=== PATIENT | male | born 1995 | race Caucasian/White ===

== ENCOUNTER 2024-01-12 20:13 | Inpatient (IN) ==
[2024-01-12] MEDS: SODIUM CHLORIDE 0.9% 1,000 ML IV SCH (20:37)
[2024-01-12 20:58] LABS: Appearance Urine Cloudy (Clear); Bacteria Urine Automated None Seen (None Seen); Bilirubin Urine Negative (Negative); Blood Urine Negative (Negative); Cast Urine Automated 0-2 /lpf (0-2); Color Urine Yellow; Epithelial Cell Urine Auto 0-2 /hpf (0-2); Glucose Urine UA Negative (Negative); Ketones Urine Negative (Negative); Leukocyte Esterase Urine Negative (Negative); Nitrite Urine Negative (Negative); Protein Urine Negative (Negative); RBC Urine Automated 0-2 /hpf (0-2); Specific Gravity Urine 1.014 (1.000-1.030); Urobilinogen Urine Negative (Negative); WBC Urine Automated 0-5 /hpf (0-5); pH Urine 7.5 (4.5-7.5)
[2024-01-12 20:59] LABS: Basophils # (auto) 0.05 K/uL (0.00-0.20); Basophils % (auto) 0.7 %; Eosinophils # (auto) 0.17 K/uL (0.00-0.50); Eosinophils % (auto) 2.4 %; Hematocrit (blood only) 37.4 % (42.0-52.0); Hemoglobin 12.5 g/dl (14.0-18.0); Immature Granulocytes # (auto) 0.04 K/uL (0.01-0.20); Immature Granulocytes % (auto) 0.6 %; Lymphocytes # (auto) 1.52 K/uL (1.20-3.40); Lymphocytes % (auto) 21.1 %; Mean Corpuscular Hemoglobin 31.7 pg (25.0-34.0); Mean Corpuscular Hgb Conc 33.4 g/dL (32.0-36.0); Mean Corpuscular Volume 94.9 fL (80.0-100.0); Mean Platelet Volume 10.8 fL (9.4-12.4); Monocytes # (auto) 0.67 K/uL (0.11-0.59); Monocytes % (auto) 9.3 %; Neutrophils # (auto) 4.74 K/uL (1.40-6.50); Neutrophils % (auto) 65.9 %; Platelet Count 147 K/uL (130-400); RDW Coefficient of Variation 13.3 % (11.5-14.5); RDW Standard Deviation 46.6 fL (36.4-46.3); Red Blood Count 3.94 M/uL (4.70-6.10); White Blood Count 7.19 K/ul (4.8-10.8)
--- NOTE | 2024-01-12 21:01 | Emergency Department Note ---
Impression & Plan TCA (tricyclic antidepressant) overdose of undetermined intent, Acute drug overdose ED Provider Note NAME: MITZY HARDY AGE: 28 SEX: M : 1995 ARRIVES VIA: Ambulance INFORMANT: Patient, ED PROVIDER(S): Kati Benitez MD CHIEF COMPLAINT: Concern for overdose HPI: This is a 28-year-old male presenting for overdose. Patient states he took gabapentin and possibly doxepin. He presented here after being found asleep on campus. He had a handful of pills in his backpack and bystanders called EMS. Patient received total of 2 of Narcan by EMS without improvement in symptoms. Upon arrival here he does mention that he took pills as well as marijuana. He is slurring his speech, falling asleep while talking to me. Maintaining his airway appropriately. ROS: See above HPI for pertinent positives & negatives. A total of 10 systems reviewed and were otherwise negative. PAST MEDICAL HISTORY: See Below PAST SURGICAL HISTORY: See Below FAMILY HISTORY: See Below SOCIAL HISTORY: See Below HOME MEDICATIONS: See Below ALLERGIES: See Below VITALS: See Below PHYSICAL EXAMINATION: General: Intermittently somnolent but arousable, disheveled appearing Head: Normocephalic and atraumatic Eyes: Normal inspection, extraocular muscles intact Ear, nose, throat: Normal external exam Neck: Normal range of motion Respiratory: lungs clear to auscultation bilaterally Cardiovascular: Regular rate/rhythm, no murmur GI: soft, nontender, no guarding or rebound Extremities: nontender, moves all extremities Neuro: Follows commands, moves all extremities, arousable to painful stimuli and voice Skin: Warm, dry, and intact MEDICAL DECISION MAKING: This 28-year-old male presenting for polysubstance overdose. Patient fairly admits to gabapentin and marijuana use today. He has numerous pills in his backpack. He is present on the pharmacy was able to identify trazodone 100 mg, gabapentin 300 mg, gabapentin 600 mg as well as doxepin 100 mg. -At this time patient is somnolent but arousable to voice and follows commands -He is not hypoxic, only mildly tachycardic to 110 -Eyes are pinpoint -CT of the head reveals no acute again process -ECG independently interpreted by me with sinus tachycardia, rate of 112, normal axis, normal OR, normal QRS, normal QTc, no ST segment elevations consistent with STEMI criteria -With a handful of pills that patient has, most concerned about possible TCA overdose due to the doxepin. Will monitor closely with EKG. Otherwise patient is resting here, easily arousable to voice, painful stimuli and follows my commands. If worsening, will escalate care including intubation if necessary. -Discussed care with [facility]. Advised his medical history, current suspected ingestion and labs/EKG -They will call us back later and is concerned about patient transaminitis, recommends NAC protocol for Tylenol despite this being negative and reports a precaution -Blood work overall reviewed showing no leukocytosis, anemia 12.5 otherwise no significant electrolyte disturbances. Transaminitis with AST greater than ALT. No bilirubin elevation. UDS only shows marijuana. VBG is not showing any acidosis. -Patient reevaluated multiple times, maintaining airway, never hypoxic. -Patient admitted to hospital service for NAC protocol as well as multidrug ingestion at this time Differential diagnosis: TCA overdose, polypharmacy, ER treatment provided: See below Diagnostics interpreted by me: ECG: See above Cardiac Monitoring: An order was placed for continuous cardiac monitoring. The monitor shows a rate of 09/10/2011 with sinus rhythm. Laboratory studies: As stated above and show below. Imaging studies: See below. Critical Care Note: I have personally spent 45 minutes of critical care time in the direct management of this patient. This includes bedside care, interpretation of diagnostic studies, and testing, discussion with consultants, patient, and family members, and other required patient management activities. This 45 minutes is in excess of all separately billable procedures. Past Med/Surg History Medical History Drug abuse Alcohol abuse Surgical History No pertinent past surgical history Social History Smoking Status: Unknown if ever smoked Preferred Language: Kitt[place] Feels Safe at Home: Yes Allergies Allergies Allergy/AdvReac Type Severity Reaction Status Date / Time No Known Allergies Allergy Unverified 01/01/24 12:27 Home Meds Home Medications Medication Instructions Recorded Confirmed No Known Home Medications 01/01/24 01/12/24 Results & Data (ED) Vital Signs Vital Signs - 24 hr 01/12/24 20:21 01/12/24 20:24 01/12/24 20:30 Pulse Rate 110 H 113 H 115 H Pulse Rate from SpO2 Sensor Respiratory Rate 20 18 Respiratory Effort / Characteristics Non-Labored Spontaneous Respiratory Depth Normal Respiratory Pattern Regular Blood Pressure 128/85 140/83 Blood Pressure Mean 99 102 Blood Pressure Position Sitting Pulse Oximetry 100 99 Oxygen Delivery Method Room Air Room Air Sepsis Recent Fever Within 48 Hours No Sepsis New/Unexplained Change in Mental Status N/A Sepsis Action Taken by Nursing No Action Required 01/12/24 21:00 01/12/24 21:15 01/12/24 21:30 Pulse Rate 115 H 116 H 116 H Pulse Rate from SpO2 Sensor Respiratory Rate 20 20 20 Respiratory Effort / Characteristics Respiratory Depth Respiratory Pattern Blood Pressure 125/96 143/98 H 128/99 Blood Pressure Mean 105 113 108 Blood Pressure Position Pulse Oximetry 100 100 99 Oxygen Delivery Method Room Air Room Air Room Air Sepsis Recent Fever Within 48 Hours Sepsis New/Unexplained Change in Mental Status Sepsis Action Taken by Nursing 01/12/24 21:30 01/12/24 21:45 01/12/24 21:45 Pulse Rate 116 H 111 H 113 H Pulse Rate from SpO2 Sensor 116 H 113 H Respiratory Rate 23 18 19 Respiratory Effort / Characteristics Respiratory Depth Respiratory Pattern Blood Pressure 128/99 149/103 H 149/103 H Blood Pressure Mean 108 118 118 Blood Pressure Position Pulse Oximetry 99 100 100 Oxygen Delivery Method Room Air Room Air Room Air Sepsis Recent Fever Within 48 Hours Sepsis New/Unexplained Change in Mental Status Sepsis Action Taken by Nursing 01/12/24 22:00 01/12/24 22:02 01/12/24 22:15 Pulse Rate 112 H 107 H 112 H Pulse Rate from SpO2 Sensor 107 H Respiratory Rate 18 20 20 Respiratory Effort / Characteristics Respiratory Depth Respiratory Pattern Blood Pressure 121/85 121/85 121/85 Blood Pressure Mean 97 97 97 Blood Pressure Position Pulse Oximetry 100 100 100 Oxygen Delivery Method Room Air Room Air Room Air Sepsis Recent Fever Within 48 Hours Sepsis New/Unexplained Change in Mental Status Sepsis Action Taken by Nursing 01/12/24 22:30 01/12/24 22:30 01/12/24 22:45 Pulse Rate 108 H 108 H 108 H Pulse Rate from SpO2 Sensor 108 H Respiratory Rate 20 21 18 Respiratory Effort / Characteristics Respiratory Depth Respiratory Pattern Blood Pressure 134/104 H 135/104 H 135/104 H Blood Pressure Mean 114 114 114 Blood Pressure Position Pulse Oximetry 97 98 98 Oxygen Delivery Method Room Air Room Air Room Air Sepsis Recent Fever Within 48 Hours Sepsis New/Unexplained Change in Mental Status Sepsis Action Taken by Nursing 01/12/24 23:00 01/12/24 23:00 01/12/24 23:15 Pulse Rate 108 H 108 H 109 H Pulse Rate from SpO2 Sensor 108 H Respiratory Rate 20 22 20 Respiratory Effort / Characteristics Respiratory Depth Respiratory Pattern Blood Pressure 127/98 127/98 121/96 Blood Pressure Mean 107 107 104 Blood Pressure Position Pulse Oximetry 97 100 95 Oxygen Delivery Method Room Air Room Air Room Air Sepsis Recent Fever Within 48 Hours Sepsis New/Unexplained Change in Mental Status Sepsis Action Taken by Nursing 01/12/24 23:30 01/12/24 23:45 01/13/24 00:00 Pulse Rate 112 H 111 H 110 H Pulse Rate from SpO2 Sensor Respiratory Rate 20 20 20 Respiratory Effort / Characteristics Respiratory Depth Respiratory Pattern Blood Pressure 139/115 H 129/95 126/93 Blood Pressure Mean 123 106 104 Blood Pressure Position Pulse Oximetry 94 95 94 Oxygen Delivery Method Room Air Room Air Room Air Sepsis Recent Fever Within 48 Hours Sepsis New/Unexplained Change in Mental Status Sepsis Action Taken by Nursing 01/13/24 00:15 01/13/24 00:15 01/13/24 00:30 Pulse Rate 109 H 108 H 109 H Pulse Rate from SpO2 Sensor 108 H Respiratory Rate 20 22 20 Respiratory Effort / Characteristics Respiratory Depth Respiratory Pattern Blood Pressure 138/102 H 138/102 H 129/90 Blood Pressure Mean 114 114 103 Blood Pressure Position Pulse Oximetry 98 97 96 Oxygen Delivery Method Room Air Room Air Room Air Sepsis Recent Fever Within 48 Hours Sepsis New/Unexplained Change in Mental Status Sepsis Action Taken by Nursing 01/13/24 01:00 01/13/24 01:30 01/13/24 02:00 Pulse Rate 109 H 110 H 113 H Pulse Rate from SpO2 Sensor Respiratory Rate 22 20 20 Respiratory Effort / Characteristics Respiratory Depth Respiratory Pattern Blood Pressure 136/112 H 136/112 H 143/93 H Blood Pressure Mean 120 120 109 Blood Pressure Position Pulse Oximetry 96 96 98 Oxygen Delivery Method Room Air Room Air Room Air Sepsis Recent Fever Within 48 Hours Sepsis New/Unexplained Change in Mental Status Sepsis Action Taken by Nursing Laboratory Data 01/12/24 20:30 01/12/24 20:30 Lab Results 01/12/24 01/12/24 Range/Units 20:30 21:09 WBC 7.19 (4.8-10.8) K/ul RBC 3.94 L (4.70-6.10) M/uL Hgb 12.5 L (14.0-18.0) g/dl Hct 37.4 L (42.0-52.0) % MCV 94.9 (80.0-100.0) fL MCH 31.7 (25.0-34.0) pg MCHC 33.4 (32.0-36.0) g/dL RDW Std Deviation 46.6 H (36.4-46.3) fL RDW Coeff of Willian 13.3 (11.5-14.5) % Plt Count 147 (130-400) K/uL MPV 10.8 (9.4-12.4) fL Immature Gran % (Auto) 0.6 % Neut % (Auto) 65.9 % Lymph % (Auto) 21.1 % [place] % (Auto) 9.3 % Eos % (Auto) 2.4 % Baso % (Auto) 0.7 % Neut # (Auto) 4.74 (1.40-6.50) K/uL Lymph # (Auto) 1.52 (1.20-3.40) K/uL [place] # (Auto) 0.67 H (0.11-0.59) K/uL Eos # (Auto) 0.17 (0.00-0.50) K/uL Baso # (Auto) 0.05 (0.00-0.20) K/uL Immature Gran # (Auto) 0.04 (0.01-0.20) K/uL PT 9.4 (9.0-12.0) Seconds INR 0.9 (0.9-1.1) VBG pH 7.38 (7.36-7.41) VBG pCO2 55 H (38-50) mmHg VBG pO2 37 mmHg VBG HCO3 33 mmol/L VBG O2 Saturation < 60.0 % VBG Base Excess 5.8 mEq/L Sodium 140 (136-145) mmol/L Potassium 4.2 (3.5-5.1) mmol/L Chloride 102 (98-107) mmol/L Carbon Dioxide 32 (21-32) mmol/L Anion Gap 6 (3-11) BUN 23 (6-23) mg/dl Creatinine 0.85 (0.6-1.4) mg/dl Est Cr Clr Drug Dosing 139.0 ml/min Est GFR ( Amer) 138.4 ml/min Est GFR (Non-Af Amer) 119.4 ml/min BUN/Creatinine Ratio 27.1 H (10-20) Glucose 99 (70-99(Fasting)) mg/dl Lactate 1.5 (0.4-2.0) mmol/L Calcium 8.4 L (8.6-10.3) mg/dl Magnesium 2.1 (1.7-2.4) mg/dl Total Bilirubin 0.5 (0.2-1.0) mg/dl AST 455 H (13-39) U/L ALT 182 H (7-52) U/L Alkaline Phosphatase 68 (34-104) U/L Total Protein 6.4 (6.0-8.3) gm/dl Albumin 3.7 (3.4-5.0) gm/dl Globulin 2.7 (2.5-4.0) gm/dl Albumin/Globulin Ratio 1.4 (0.9-2) TSH 3.066 (0.300-4.500) uIu/ml Urine Color Yellow Urine Appearance Cloudy A (Clear) Urine pH 7.5 (4.5-7.5) Ur Specific [place] 1.014 (1.000-1.030) Urine Protein Negative (Negative) Urine Glucose (UA) Negative (Negative) Urine Ketones Negative (Negative) Urine Blood Negative (Negative) Urine Nitrite Negative (Negative) Urine Bilirubin Negative (Negative) Urine Urobilinogen Negative (Negative) Ur Leukocyte Esterase Negative (Negative) Urine WBC (Auto) 0-5 (0-5) /hpf Urine RBC (Auto) 0-2 (0-2) /hpf U Hyaline Cast (Auto) 0-2 (0-2) /lpf U Epithel Cells (Auto) 0-2 (0-2) /hpf Urine Bacteria (Auto) None Seen (None Seen) Salicylates < 3.0 L (3.0-30) mg/dl Urine Opiates Screen Neg (Neg) Ur Methadone, Qual Neg (Neg) Acetaminophen < 3 L (10-30) ug/ml Urine Barbiturates Neg (Neg) Ur Phencyclidine (PCP) Neg (Neg) U Amphetamin/Meth Scrn Neg (Neg) MDMA (Ecstasy) Screen Neg (Neg) U Benzodiazepines Scrn Neg (Neg) Ur Cocaine Metabolite Neg (Neg) U Marijuana (THC) Screen Pos H (Neg) Ethyl Alcohol mg/dL < 10.0 (<10.0) mg/dl Administered Medications Acetylcysteine 4,000 mg/ (Dextrose) 520 mls @ 125 mls/hr IV ONCE ONE; Protocol Stop: 01/13/24 04:01 Last Admin: 01/13/24 00:55 Dose: 125 mls/hr Documented By: VANDANA Discontinued Medications Acetylcysteine (Acetylcysteine Iv 21 Hr Regimen (>40kg)) 1 each IV NOW STA; Protocol Stop: 01/12/24 22:53 Last Admin: 01/12/24 23:34 Dose: Not Given Documented By: VANDANA Sodium Chloride (Nss) 1,000 mls @ 999 mls/hr IV .Q1H1M JESSICA Stop: 01/12/24 21:45 Last Infusion: 01/12/24 21:53 Dose: Infused Documented By: Admin: 01/12/24 20:37 Dose: 999 mls/hr Documented By: VANDANA Acetylcysteine 12,000 mg/ (Dextrose) 260 mls @ 200 mls/hr IV ONCE ONE; Protocol Stop: 01/13/24 00:09 Last Infusion: 01/13/24 00:56 Dose: Infused Documented By: Admin: 01/12/24 23:33 Dose: 200 mls/hr Documented By: VANDANA Miscellaneous (Stat Iv/Im) 1 each N/A NOW STA Stop: 01/12/24 22:53 Last Admin: 01/12/24 23:35 Dose: Not Given Documented By: VANDANA Imaging Data Radiologist's Impression: Head CT 01/12/24 20:32 Exam(s): CT HEAD Without Contrast EXAM: CT Head Without Intravenous Contrast CLINICAL HISTORY: Reason for exam: AMS. TECHNIQUE: Axial computed tomography images of the head/brain without intravenous contrast. CTDI is 36 mGy and DLP is 624 mGy-cm. Automated exposure control was utilized for the study. A dose lowering technique was utilized adhering to the principles of ALARA. COMPARISON: No relevant prior studies available. FINDINGS: Brain: Unremarkable. No hemorrhage. No significant white matter disease. No edema. Samson-white matter differentiation maintained. Ventricles: Unremarkable. No hydrocephalus. Bones/joints: Unremarkable. No acute fracture. Soft tissues: Query mild scalp soft tissue swelling near the vertex. Sinuses: Unremarkable as visualized. Mastoid air cells: Unremarkable as visualized. No mastoid effusion. IMPRESSION: Query mild scalp soft tissue swelling near the vertex. No acute intracranial process. Electronically signed by: Ila Shaikh M.D. 01/12/24 21:09 PM Discharge Plan Visit Data Chief Complaint: Overdose (Accidental) Stated Complaint: Overdose, Slurred Speech ED Provider: Kati Benitez Discharge Problem: TCA (tricyclic antidepressant) overdose of undetermined intent, Acute drug overdose Forms Stand Alone Forms: [facility] Prescriptions Prescriptions: No Action No Known Home Medications Referrals Referrals: PCP,NO [Primary Care Provider] -
[2024-01-12 21:08] LABS: Albumin Globulin Ratio 1.4 (0.9-2); Albumin Level 3.7 gm/dl (3.4-5.0); BUN Creatinine Ratio 27.1 (10-20); Bilirubin,Total 0.5 mg/dl (0.2-1.0); Calcium 8.4 mg/dl (8.6-10.3); Est GFR (African American) 138.4 ml/min; Est GFR (Non-African American) 119.4 ml/min; Globulin 2.7 gm/dl (2.5-4.0); Potassium 4.2 mmol/L (3.5-5.1); Total Protein 6.4 gm/dl (6.0-8.3)
[2024-01-12 21:10] LABS: Acetaminophen < 3 ug/ml (10-30); Salicylate < 3.0 mg/dl (3.0-30)
--- NOTE | 2024-01-12 21:10 | CT Scan Report ---
Exam(s): CT HEAD Without Contrast EXAM: CT Head Without Intravenous Contrast CLINICAL HISTORY: Reason for exam: AMS. TECHNIQUE: Axial computed tomography images of the head/brain without intravenous contrast. CTDI is 36 mGy and DLP is 624 mGy-cm. Automated exposure control was utilized for the study. A dose lowering technique was utilized adhering to the principles of ALARA. COMPARISON: No relevant prior studies available. FINDINGS: Brain: Unremarkable. No hemorrhage. No significant white matter disease. No edema. Samson-white matter differentiation maintained. Ventricles: Unremarkable. No hydrocephalus. Bones/joints: Unremarkable. No acute fracture. Soft tissues: Query mild scalp soft tissue swelling near the vertex. Sinuses: Unremarkable as visualized. Mastoid air cells: Unremarkable as visualized. No mastoid effusion. IMPRESSION: Query mild scalp soft tissue swelling near the vertex. No acute intracranial process. Electronically signed by: Ila Shaikh M.D. 01/12/24 21:09 PM
[2024-01-12 21:16] LABS: Base Excess VBG 5.8 mEq/L; HCO3 VBG 33 mmol/L; Oxygen Saturation VBG < 60.0 %; PCO2 VBG 55 mmHg (38-50); PO2 VBG 37 mmHg; pH VBG 7.38 (7.36-7.41)
[2024-01-12 21:23] LABS: Thyroid Stimulating Hormone 3.066 uIu/ml (0.300-4.500)
[2024-01-12 21:59] LABS: Amphetamines+Metham, Urine Neg (Neg); Barbiturates, Urine Neg (Neg); Benzodiazepine, Urine Neg (Neg); Cocaine, Urine Neg (Neg); MDMA (Ecstacy), Urine Neg (Neg); Marijuana, Urine Pos (Neg); Methadone, Urine Neg (Neg); Opiate, Urine Neg (Neg); Phencyclidine, Urine Neg (Neg)
[2024-01-12] MEDS: AcetylCYSTEINE IV 21 HR REGIMEN (>40KG) IV STA (23:34)
[2024-01-12] MEDS: STAT IV/IM STA (23:35)
[2024-01-12 23:50] LABS: INR 0.9 (0.9-1.1); Prothrombin Time 9.4 Seconds (9.0-12.0)
[2024-01-12 23:56] LABS: Magnesium 2.1 mg/dl (1.7-2.4)
--- NOTE | 2024-01-13 02:26 | History & Physical Report ---
Date of Service January 13, 2024 Assessment & Plan (1) Encephalopathy: Plan: Multifactorial: 1. Drug overdose ? Gabapentin, doxepin History substance abuse Intent to be determined Suboptimal anxiety/mood disorder symptoms History ADHD 2. Possible concussion given head trauma, unknown duration Rhabdomyolysis secondary to trauma/drug abuse Transaminitis likely secondary to above New onset anemia, possibly from head trauma with note of contusion Alcohol abuse PCU Psych consult re: substance abuse, suboptimal mood disorder [facility] neurochecks for possible concussion, repeat CT head 12 hours after first imaging Follow CPK response to IVF Follow LFTs, liver ultrasound if with progression Anemia workup JOANA S at risk protocol, DT precautions DVT prophylaxis. SCDs Re: Traumatic head injury Full code Patient mother requesting updates from providers. Ms. Soliz Karlos, contact #[phone]. Text document was generated using [employer] recognition software. It may contain grammatical or spelling errors. Kindly contact undersigned for clarification of any documentation item in question. ADDENDUM (01/12, 7AM) [place] [facility] updated of rhabdomyolysis findings on blood work. Reasonable to discontinue ongoing Acetadote infusion (started at the ER for possible Tylenol overdose) as per discussion with agent. History of Present Illness Chief Complaint: Overdose as per records Primary Care Provider: Dr. Bobby Hendricks. History obtained from ED provider, family, and records. Unable to obtain history from patient secondary to obtunded state. Medical history significant for ADHD, anxiety/mood disorder, alcohol abuse, substance abuse. Patient has been under stress for some time now. Anxiety and mood not in control as per mother. Patient having difficulty getting set up with local mental health professional to get started on right medications as per family. [place] [facility] [place] intake assessment via telemedicine 2 weeks ago. Patient talking about struggles with anxiety and manic episodes. Stress from fianc break-up. Patient mother not sure if patient needed to scheduled appointment with [facility] psychiatrist this week. Patient found sleeping at [facility] center with unidentified bottle of pills (gabapentin and possibly doxepin as per report). Head contusion noted. Patient noted to be with slurred speech. No response to Narcan. Patient unable to respond to queries regarding chest pain, SOB, syncope, details of head trauma, abdominal pain. IV Acetadote protocol initiated at the ER following Toxicology recommendations given abnormal LFTs. Medical History as above Surgical History : Dental surgery Family History : Unknown due to patient adoption Personal/Social history : Non-smoker, alcohol abuse as per patient family, currently unemployed Allergies Allergy/AdvReac Type Severity Reaction Status Date / Time No Known Allergies Allergy Unverified 01/01/24 12:27 Home Medications Medication Instructions Recorded Confirmed Type No Known Home Medications 01/01/24 01/12/24 History Past Med/Surg History Medical History Drug abuse Alcohol abuse Surgical History No pertinent past surgical history Social History Smoking Status: Current every day smoker Tobacco Type: Cigarettes Hx Alcohol Use: Yes Alcohol type: beer, wine and hard liquor Hx Substance Use: Yes Substance Use Type Other:: Patient refusing to report the "many differant" Preferred Language: [employer] Required: No Beliefs That Will Affect Care: None Current Living Situation: Family Feels Safe at Home: Yes Safety Concerns: Feels Safe At This Time Review of Systems Review of Systems: Could not be reliably obtained secondary to obtunded state Physical Exam Physical Exam: GENERAL: Obtunded, no respiratory distress SKIN: Pallor, warm HEENT: Scalp contusion, pale palpebral conjunctivae, no ptosis, dry buccal mucosa NECK : Supple, no tenderness CHEST : Decreased breath sounds, no tenderness HEART : Tachycardic, no obvious murmurs ABDOMEN: no distention, nontender EXTREMITIES : No LE swelling/tenderness, no other conspicuous deformities noted NEUROLOGIC : Obtunded , no facial asymmetry, gait and stance not assessed Results & Data Results & Data Vital Signs (Past 12 Hours) Vital Signs Pulse Resp BP Pulse Ox O2 Del Method 01/13/24 02:00 113 H 20 143/93 H 98 Room Air 01/13/24 01:30 110 H 20 136/112 H 96 Room Air 01/13/24 01:00 109 H 22 136/112 H 96 Room Air 01/13/24 00:56 110 H 01/13/24 00:30 109 H 20 129/90 96 Room Air 01/13/24 00:15 108 H 22 138/102 H 97 Room Air 01/13/24 00:15 109 H 20 138/102 H 98 Room Air 01/13/24 00:00 110 H 20 126/93 94 Room Air 01/12/24 23:45 111 H 20 129/95 95 Room Air 01/12/24 23:30 112 H 20 139/115 H 94 Room Air 01/12/24 23:15 109 H 20 121/96 95 Room Air 01/12/24 23:00 108 H 22 127/98 100 Room Air 01/12/24 23:00 108 H 20 127/98 97 Room Air 01/12/24 22:45 108 H 18 135/104 H 98 Room Air 01/12/24 22:30 108 H 21 135/104 H 98 Room Air 01/12/24 22:30 108 H 20 134/104 H 97 Room Air 01/12/24 22:15 112 H 20 121/85 100 Room Air 01/12/24 22:02 107 H 20 121/85 100 Room Air 01/12/24 22:00 112 H 18 121/85 100 Room Air 01/12/24 21:45 113 H 19 149/103 H 100 Room Air 01/12/24 21:45 111 H 18 149/103 H 100 Room Air 01/12/24 21:30 116 H 23 128/99 99 Room Air 01/12/24 21:30 116 H 20 128/99 99 Room Air 01/12/24 21:15 116 H 20 143/98 H 100 Room Air 01/12/24 21:00 115 H 20 125/96 100 Room Air 01/12/24 20:30 115 H 18 140/83 99 Room Air 01/12/24 20:24 113 H 01/12/24 20:21 110 H 20 128/85 100 Room Air Laboratory Results Laboratory Results WBC 7.19 K/ul (4.8-10.8) 01/12/24 20:30 RBC 3.94 M/uL (4.70-6.10) L 01/12/24 20:30 Hgb 12.5 g/dl (14.0-18.0) L 01/12/24 20:30 Hct 37.4 % (42.0-52.0) L 01/12/24 20:30 MCV 94.9 fL (80.0-100.0) 01/12/24 20:30 MCH 31.7 pg (25.0-34.0) 01/12/24 20:30 MCHC 33.4 g/dL (32.0-36.0) 01/12/24 20:30 RDW Std Deviation 46.6 fL (36.4-46.3) H 01/12/24 20: RDW Coeff of Willian 13.3 % (11.5-14.5) 01/12/24 20: Plt Count 147 K/uL (130-400) 01/12/24 20: MPV 10.8 fL (9.4-12.4) 01/12/24 20:30 Immature Gran % (Auto) 0.6 % 01/12/24 20:30 Neut % (Auto) 65.9 % 01/12/24 20:30 Lymph % (Auto) 21.1 % 01/12/24 20:30 [place] % (Auto) 9.3 % 01/12/24 20:30 Eos % (Auto) 2.4 % 01/12/24 20:30 Baso % (Auto) 0.7 % 01/12/24 20:30 Neut # (Auto) 4.74 K/uL (1.40-6.50) 01/12/24 20:30 Lymph # (Auto) 1.52 K/uL (1.20-3.40) 01/12/24 20:30 [place] # (Auto) 0.67 K/uL (0.11-0.59) H 01/12/24 20:30 Eos # (Auto) 0.17 K/uL (0.00-0.50) 01/12/24 20:30 Baso # (Auto) 0.05 K/uL (0.00-0.20) 01/12/24 20:30 Immature Gran # (Auto) 0.04 K/uL (0.01-0.20) 01/12/24 20:30 PT 9.4 Seconds (9.0-12.0) 01/12/24 20:30 INR 0.9 (0.9-1.1) 01/12/24 20:30 VBG pH 7.38 (7.36-7.41) 01/12/24 21:09 VBG pCO2 55 mmHg (38-50) H 01/12/24 21:09 VBG pO2 37 mmHg 01/12/24 21:09 VBG HCO3 33 mmol/L 01/12/24 21:09 VBG O2 Saturation < 60.0 % 01/12/24 21:09 VBG Base Excess 5.8 mEq/L 01/12/24 21:09 Sodium 140 mmol/L (136-145) 01/12/24 20:30 Potassium 4.2 mmol/L (3.5-5.1) 01/12/24 20:30 Chloride 102 mmol/L (98-107) 01/12/24 20:30 Carbon Dioxide 32 mmol/L (21-32) 01/12/24 20:30 Anion Gap 6 (3-11) 01/12/24 20:30 BUN 23 mg/dl (6-23) 01/12/24 20:30 Creatinine 0.85 mg/dl (0.6-1.4) 01/12/24 20:30 Est Cr Clr Drug Dosing 139.0 ml/min 01/12/24 20:30 Est GFR ( Amer) 138.4 ml/min 01/12/24 20:30 Est GFR (Non-Af Amer) 119.4 ml/min 01/12/24 20:30 BUN/Creatinine Ratio 27.1 (10-20) H 01/12/24 20:30 Glucose 99 mg/dl (70-99(Fasting)) 01/12/24 20:30 Lactate 1.5 mmol/L (0.4-2.0) 01/12/24 21:09 Calcium 8.4 mg/dl (8.6-10.3) L 01/12/24 20:30 Magnesium 2.1 mg/dl (1.7-2.4) 01/12/24 20:30 Total Bilirubin 0.5 mg/dl (0.2-1.0) 01/12/24 20:30 AST 455 U/L (13-39) H 01/12/24 20:30 ALT 182 U/L (7-52) H 01/12/24 20:30 Alkaline Phosphatase 68 U/L (34-104) 01/12/24 20:30 Total Protein 6.4 gm/dl (6.0-8.3) 01/12/24 20:30 Albumin 3.7 gm/dl (3.4-5.0) 01/12/24 20:30 Globulin 2.7 gm/dl (2.5-4.0) 01/12/24 20:30 Albumin/Globulin Ratio 1.4 (0.9-2) 01/12/24 20:30 TSH 3.066 uIu/ml (0.300-4.500) 01/12/24 20:30 Urine Color Yellow 01/12/24 20:30 Urine Appearance Cloudy (Clear) A 01/12/24 20:30 Urine pH 7.5 (4.5-7.5) 01/12/24 20:30 Ur Specific [place] 1.014 (1.000-1.030) 01/12/24 20:30 Urine Protein Negative (Negative) 01/12/24 20:30 Urine Glucose (UA) Negative (Negative) 01/12/24 20:30 Urine Ketones Negative (Negative) 01/12/24 20: Urine Blood Negative (Negative) 01/12/24 20:30 Urine Nitrite Negative (Negative) 01/12/24 20:30 Urine Bilirubin Negative (Negative) 01/12/24 20:30 Urine Urobilinogen Negative (Negative) 01/12/24 20:30 Ur Leukocyte Esterase Negative (Negative) 01/12/24 20:30 Urine WBC (Auto) 0-5 /hpf (0-5) 01/12/24 20:30 Urine RBC (Auto) 0-2 /hpf (0-2) 01/12/24 20:30 U Hyaline Cast (Auto) 0-2 /lpf (0-2) 01/12/24 20:30 U Epithel Cells (Auto) 0-2 /hpf (0-2) 01/12/24 20:30 Urine Bacteria (Auto) None Seen (None Seen) 01/12/24 20:30 Salicylates < 3.0 mg/dl (3.0-30) L 01/12/24 20:30 Urine Opiates Screen Neg (Neg) 01/12/24 20:30 Ur Methadone, Qual Neg (Neg) 01/12/24 20:30 Acetaminophen < 3 ug/ml (10-30) L 01/12/24 20:30 Urine Barbiturates Neg (Neg) 01/12/24 20:30 Ur Phencyclidine (PCP) Neg (Neg) 01/12/24 20:30 U Amphetamin/Meth Scrn Neg (Neg) 01/12/24 20:30 MDMA (Ecstasy) Screen Neg (Neg) 01/12/24 20:30 U Benzodiazepines Scrn Neg (Neg) 01/12/24 20:30 Ur Cocaine Metabolite Neg (Neg) 01/12/24 20:30 U Marijuana (THC) Screen Pos (Neg) H 01/12/24 20:30 Ethyl Alcohol mg/dL < 10.0 mg/dl (<10.0) 01/12/24 20:[address] 01/12/24 20:32 Exam(s): CT HEAD Without Contrast EXAM: CT Head Without Intravenous Contrast CLINICAL HISTORY: Reason for exam: AMS. TECHNIQUE: Axial computed tomography images of the head/brain without intravenous contrast. CTDI is 36 mGy and DLP is 624 mGy-cm. Automated exposure control was utilized for the study. A dose lowering technique was utilized adhering to the principles of ALARA. COMPARISON: No relevant prior studies available. FINDINGS: Brain: Unremarkable. No hemorrhage. No significant white matter disease. No edema. Samson-white matter differentiation maintained. Ventricles: Unremarkable. No hydrocephalus. Bones/joints: Unremarkable. No acute fracture. Soft tissues: Query mild scalp soft tissue swelling near the vertex. Sinuses: Unremarkable as visualized. Mastoid air cells: Unremarkable as visualized. No mastoid effusion. IMPRESSION: Query mild scalp soft tissue swelling near the vertex. No acute intracranial process. Electronically signed by: Ila Shaikh M.D. 01/12/24 21:09 PM Diagnostic Findings EKG as per my interpretation : Rate 110, sinus tachycardia, normal axis, no ischemia
[2024-01-13] MEDS ORDERED: PROMETHAZINE HCL 6.25 MG in SODIUM CHLORIDE 0.9% 50 ML IV PRN (02:28)
[2024-01-13] MEDS ORDERED: IBUPROFEN 200 MG TAB PO PRN (02:28)
[2024-01-13] MEDS: LACTATED RINGER'S 1,000 ML IV ONE (02:57)
[2024-01-13] MEDS ORDERED: LORazepam 1 MG in SYRINGE 0.5 ML IV PRN (04:46)
[2024-01-13 05:14] LABS: Prothrombin Time 10.5 Seconds (9.0-12.0)
[2024-01-13 05:16] LABS: Basophils # (auto) 0.04 K/uL (0.00-0.20); Basophils % (auto) 0.6 %; Eosinophils # (auto) 0.16 K/uL (0.00-0.50); Eosinophils % (auto) 2.5 %; Hematocrit (blood only) 35.3 % (42.0-52.0); Hemoglobin 11.6 g/dl (14.0-18.0); Immature Granulocytes % (auto) 1.6 %; Lymphocytes # (auto) 1.14 K/uL (1.20-3.40); Lymphocytes % (auto) 18.1 %; Mean Corpuscular Hemoglobin 31.4 pg (25.0-34.0); Mean Corpuscular Hgb Conc 32.9 g/dL (32.0-36.0); Mean Corpuscular Volume 95.4 fL (80.0-100.0); Mean Platelet Volume 10.6 fL (9.4-12.4); Monocytes # (auto) 0.54 K/uL (0.11-0.59); Monocytes % (auto) 8.6 %; Neutrophils # (auto) 4.32 K/uL (1.40-6.50); Neutrophils % (auto) 68.6 %; Platelet Count 128 K/uL (130-400); RDW Coefficient of Variation 13.4 % (11.5-14.5); RDW Standard Deviation 47.3 fL (36.4-46.3); Reticulocyte % 2.01 % (0.50-2.00)
[2024-01-13] MEDS: THIAMINE HCL 100 MG in SYRINGE 9 ML IV STA (05:20)
[2024-01-13 05:32] LABS: Alanine Aminotransferase 140 U/L (7-52); Albumin Globulin Ratio 1.3 (0.9-2); Albumin Level 3.1 gm/dl (3.4-5.0); Alkaline Phosphatase 48 U/L (34-104); Anion Gap 6 (3-11); Aspartate Aminotransferase 265 U/L (13-39); BUN Creatinine Ratio 26.7 (10-20); Bilirubin,Total 0.5 mg/dl (0.2-1.0); Blood Urea Nitrogen 16 mg/dl (6-23); Calcium 7.8 mg/dl (8.6-10.3); Carbon Dioxide 26 mmol/L (21-32); Chloride 106 mmol/L (98-107); Est GFR (African American) > 150.0 ml/min; Est GFR (Non-African American) 137.8 ml/min; Globulin 2.3 gm/dl (2.5-4.0); Glucose 107 mg/dl (70-99(Fasting)); Iron 87 mcg/dl (35-175); Potassium 3.9 mmol/L (3.5-5.1); Sodium 138 mmol/L (136-145); Total Protein 5.4 gm/dl (6.0-8.3); Transferrin 168 mg/dl (200-360)
[2024-01-13 05:51] LABS: Ferritin 235.3 ng/ml (8-388)
[2024-01-13 06:51] LABS: Creatine Kinase 8586 U/L (30-223)
[2024-01-13] MEDS: LACTATED RINGER'S 1,000 ML IV SCH (07:48)
[2024-01-13] MEDS: MULTIVITAMIN TAB PO SCH (09:47)
[2024-01-13] MEDS: FOLIC ACID 1 MG TAB PO SCH (09:47)
--- NOTE | 2024-01-13 12:33 | CT Scan Report ---
HEAD CT NONCONTRAST CT DOSE: 547.75 mGy.cm HISTORY: Follow-up, head trauma TECHNIQUE: Multiaxial CT images of the head were performed without the use of intravenous contrast. A utomated exposure control was utilized for this study. A dose lowering technique was utilized adheri ng to the principles of ALARA. Comparison: None. Findings: The paranasal sinuses and mastoid air cells are clear. The calvarium and skull base are int act. The ventricles and sulci are within normal limits. There is no mass, hematoma, midline shift, or acute infarct. Bilateral scalp swelling is noted. Impression: No acute intracranial abnormality. Bilateral scalp swelling. ACT 112: Negative or not required by law. Electronically signed by: Sandeep Blank M.D. 01/13/2024 12:31 PM
--- NOTE | 2024-01-13 15:18 | Communication Note ---
Date of Service: January 13, 2024 Patient was seen and examined at bedside. 28-year-old male with PMH of ADHD, anxiety/mood disorder, alcohol abuse, substance abuse was found sleeping at campus with an identified bottles of pills. Head contusion was noted at presentation. Patient noted to have slurred speech and no response to Narcan at ED. At my bedside examination on the late morning of arrival, patient was more awake and oriented, reported taking several puffs of marijuana/1 L of wine/couple of tablets of Xanax. Denies taking other recreational drugs and other medical drugs. He is being managed for the following: Toxic encephalopathy Overdose on recreational drugs Patient brought in due to being found asleep at campus. No response to Narcan at ED. Patient reports taking Xanax/1 L of wine/several puffs of marijuana for recreational purposes/to get high, denied SI/HI Labs fairly WNL at presentation except for LFT elevation and CPK elevation Admitting CT head with soft tissue swelling, no intracranial abnormality. EKG with QTc of 475, sinus tachycardia. Psych liaison evaluated, appreciate input. Telemetry monitoring, repeat EKG in AM. Mentation improved, continue to monitor. IVF. Tox screen +ve for marijuana, neg for alcohol, some results pending. Rhabdomyolysis and transaminitis: CPK 8586 and LFT elevated at presentation. Secondary to trauma/drug abuse, continue with IVF, CPK in a.m. Liver USG and GI if no improvement in LFT. New onset anemia: Hemoglobin of 14.7 in December 2023, presenting hemoglobin 12.5, possible blood loss secondary to head trauma with note of contusion. Monitor H&H. Iron profile wnl. B12 low normal, will sent folate level. Start B12 supplement 5/5, repeat in 3 months. Alcohol abuse: JOANA S at risk protocol, DT precautions Other chronic medical conditions: Continue with/resume home meds as and when able History substance abuse Suboptimal anxiety/mood disorder symptoms - psych liason [place], pt to f/u w/ his OP psychiatry. History ADHD DVT prophylaxis. SCDs Re: Traumatic head injury Full code Patient mother Ms. Heydi Everett, contact #[phone]. For detailed information on the patient, refer to today's H&P note. Patient does not want his mother to be updated without his permission. Text document was generated using [employer] recognition software. It may contain grammatical or spelling errors. Kindly contact undersigned for clarification of any documentation item in question.
[2024-01-13] MEDS: SODIUM CHLORIDE 0.9% 1,000 ML IV SCH (15:34)
[2024-01-13] MEDS: CYANOCOBALAMIN (B-12) 500 MCG TABLET PO SCH (16:44)
[2024-01-13] MEDS: MELATONIN 3 MG TAB PO PRN (21:55)
--- NOTE | 2024-01-13 22:49 | Electrocardiogram Report ---
Test Reason : Blood Pressure : / mmHG Vent. Rate : 112 BPM Atrial Rate : 112 BPM P-R Int : 154 ms QRS Dur : 094 ms QT Int : 348 ms P-R-T Axes : 057 049 033 degrees QTc Int : 475 ms Sinus tachycardia Otherwise normal ECG When compared with ECG of 06-OCT-2019 00:05, Vent. rate has increased BY 53 BPM Confirmed by Catalino Laguna ([id number]) on 01/13/2024 10:48:50 PM Referred By: REFERRED SELF Confirmed By:Catalino Laguna
--- OUTSIDE RECORDS SUMMARY | 2024-01-14 04:01 | External Medical Summary | Summary of Care ---
Author Name Unknown Organization [facility] Address [address] [place] [address] Phone [phone] Care Team Providers Care Atomic Process Engineer Name Role Phone Eladio Bobby Elizabeth EVANS Primary Care Provider [phone] Reason for Visit * Reason Comments No Show * - Authorized Specialty Diagnoses / Procedures Referred By Kenzieac t Referred To Contact Referral ID Status Reason Start Date Expiration Date V isits Requested Visits Authorized [id number] Authorized 12/10/2023 12/08/2024 [id number] Encounter Details Date Type Department Care Team (Late st Contact Info) Description 01/10/2024 1:00 PM EDT [facility] [address] [place] [address] Ernie Barton MD [address] [place] [address] No Show for psych appt* Allergies Active Allergy Reactions Criticality Noted Date Comments Pollen 01/23/2013 documented as of this encounter (statuses as of 01/10/2024) Medications Medication Sig Dispensed Refills Start Date End Date Status sertraline (ZOLOFT) 100 MG Tablet Take 100 mg by mouth every evening. 0 06/24/2019 Active prazosin (MINIPRESS) 1 MG Capsule Take 1 mg by mouth at bedtime. 7 06/24/2019 Active prazosin (MINIPRESS) 2 MG Capsule Take 2 mg by mouth at bedtime. 0 06/24/2019 Active albuterol HFA (PROAIR HFA) 108 (90 BASE) MCG/ACT inhaler Inhale 2 Puffs by mouth 4 times a day. 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 skin 3 Acne 01/23/2013 documented as of this encounter (statuses as of 01/10/2024) Immunizations Name Administration Dates Next Due Seasonal Influenza, PF, 6 M & above, IM , (FluLaval or Fluzone) 07/03/2019,08/23/2017 TD, Preservative Free 08/23/2017 TDAP (age 10 and older)(Boostrix) 09/10/2006 documented as of this encounter Social History Tobacco Use Types Packs/Day Years Used Date Smoking Tobacco: Former Cigarettes Q uit: 09/09/2018 Smokeless Tobacco: Never Alcohol Use Standard Drinks/Week Comments Yes 0 (1 standard drink = 0.6 oz pur e alcohol) rarely PHQ-2 Answer Date Recorded PHQ Adult Total Score 13 12/31/2023 Hunger Vital Sign Answer Date Recorded Worried About Running Out of Food in the Last Ye ar Not on file 12/31/2023 Within the past 12 months, t he food you bought just didn't last and you didn't have money to get more. Never true 12/31/2023 Education Answer Date Recorded What is the highest level of school you have completed or the highest degree you have received? Some college, no degree 12/31/2023 Sex and Gender Information Value Date Recorded Sex Assigned at Male 12/31/2023 7:42 AM EDT Gender Identity Male 12/31/2023 7:42 AM EDT Sexual Orientation Fonseca 12/31/2023 7: 42 AM EDT documented as of this encounter Progress Notes * Ernie Barton MD - 01/10/2024 4:12 PM EDT Patient failed to keep appointment. documented in this encounter Plan of Treatment Upcoming Encounters Date Type Department Care Team (Late st Contact Info) Description 01/23/2024 1:00 PM EDT Telemedicine Psychology [facility] [address] [facility] [place] [phone] Misa Redmond, [employer]UCK DRIVER [address] [place] [phone] 04/18/2024 11:00 AM EDT Telemedicine Psychiatry [facility] [place] [address] [place] [address] Beatriz Milton MD [address] [place] [id number] Health Maintenance Due Date Last Done Comments Hepatitis C Screening 2014 Hepatitis B (1 of 3 - 19+ 3-dose series) 2015 COVID-19 Vaccine (2022-2 4 season) 2023 Depression, Most Recent Scor e >= 10 (will fire each visit until score < 10) 01/01/2024 12/31/2023 Influenza Vaccine (FLU shot) (Season Ended) 2024 07/03/2019, 08/23/2017 DTaP,Tdap,and Td Vaccines (3 - Td or Tdap) 08/23/2027 08/23/2017, 09/10/2006 GARDASIL-HPV IMMUNIZATION SERIES Aged Out No longer eligible b ased on patient's age to complete this topic MENINGOCOCCAL (MENACTRA/MENVEO) Aged Out No longer eligible b ased on patient's age to complete this topic Pneumococcal Vaccine: Pediatrics (0 to 5 Years) and At-Risk Patients (6 to 64 Years) Aged Out No longer eligible b ased on patient's age to complete this topic documented as of this encounter Medical Devices Not on filedocumented as of this encounter Visit Diagnoses Diagnosis No Show for psych appt- Primary documented in this encounter Care Teams Atomic Process Engineer Relationship Specialty Start Date End Date Bobby Hendricks DO [address] [place] [address] PCP - General Family Medicine 08/23/17 documented as of this encounter
[2024-01-14 04:40] LABS: Hematocrit (blood only) 34.2 % (42.0-52.0); Hemoglobin 11.2 g/dl (14.0-18.0); Mean Corpuscular Hemoglobin 31.5 pg (25.0-34.0); Mean Corpuscular Hgb Conc 32.7 g/dL (32.0-36.0); Mean Corpuscular Volume 96.1 fL (80.0-100.0); Mean Platelet Volume 10.4 fL (9.4-12.4); Platelet Count 155 K/uL (130-400); RDW Coefficient of Variation 13.5 % (11.5-14.5); RDW Standard Deviation 48.6 fL (36.4-46.3); Red Blood Count 3.56 M/uL (4.70-6.10); White Blood Count 5.55 K/ul (4.8-10.8)
[2024-01-14 04:59] LABS: BUN Creatinine Ratio 26.7 (10-20); Calcium 8.2 mg/dl (8.6-10.3); Creatinine Clr Calc Pharmacy 157.6 ml/min; Est GFR (African American) 145.7 ml/min; Est GFR (Non-African American) 125.7 ml/min; Potassium 4.2 mmol/L (3.5-5.1)
[2024-01-14 05:28] LABS: Albumin Globulin Ratio 1.4 (0.9-2); Albumin Level 2.9 gm/dl (3.4-5.0); Bilirubin,Total 0.5 mg/dl (0.2-1.0); Globulin 2.1 gm/dl (2.5-4.0); Magnesium 1.7 mg/dl (1.7-2.4)
[2024-01-14] MEDS: THIAMINE HCL 100 MG TAB PO SCH (07:47)
--- NOTE | 2024-01-14 15:32 | Hospitalist Progress Note ---
Date of Service January 14, 2024 Assessment & Plan (1) Acute drug overdose: Plan 28-year-old male with PMH of ADHD, anxiety/mood disorder, alcohol abuse, substance abuse was found sleeping at campus with an identified bottles of pills. Head contusion was noted at presentation. Patient noted to have slurred speech and no response to Narcan at ED. At my bedside examination on the late morning of arrival, patient was more awake and oriented, reported taking several puffs of marijuana/1 L of wine/couple of tablets of Xanax. Denies taking other recreational drugs and other medical drugs. He is being managed for the following: Toxic encephalopathy Overdose on recreational drugs Patient brought in due to being found asleep at campus. No response to Narcan at ED. Patient reported (on 01/12) taking Xanax/1 L of wine/several puffs of marijuana for recreational purposes/to get high, denied SI/HI He reports not being able to recall exactly what he took, but he is sure he was taking lot of marijuana and he might have taken 6 tabs of doxepin (strength unknown) thinking it was gabapentin. Labs fairly WNL at presentation except for LFT elevation and CPK elevation Admitting and repeat CT head with soft tissue swelling, no intracranial abnormality. EKG with QTc of 475, sinus tachycardia at presentation. Psych liaison evaluated, appreciate input. Telemetry monitoring, repeat EKG for Qtc monitoring. Mentation improved, continue to monitor. IVF. Tox screen +ve for marijuana, neg for alcohol, some results pending. c/w ivf today as well. Rhabdomyolysis and transaminitis: CPK 8586 and LFT elevated at presentation. Secondary to trauma/drug abuse, continue with IVF, CPK in a.m. CPK and LFT are improving New onset anemia: Hemoglobin of 14.7 in December 2023, presenting hemoglobin 12.5, possible blood loss secondary to head trauma with note of contusion. Monitor H&H. Iron profile wnl. B12 low normal, folate level low normal. Start B12 and folate supplement 01/12, repeat irons studies in 3 months. Alcohol abuse: JOANA S at risk protocol, DT precautions scalp contusion: CT head reviewed. continue to monitor. appears stable, non infected. pain under control Other chronic medical conditions: Continue with/resume home meds as and when able History substance abuse Suboptimal anxiety/mood disorder symptoms - psych liason [place], pt to f/u w/ his OP psychiatry. History ADHD DVT prophylaxis. SCDs Re: Traumatic head injury Full code Patient mother Ms. Heydi Everett, contact #[phone]. Pt ok with updating his parents with no restrictions as per today's discussion. Text document was generated using [employer] voice recognition software. It may contain grammatical or spelling errors. Kindly contact undersigned for clarification of any documentation item in question. Admission and Anticipated Discharge Date Admission Date: January 13, 2024 Subjective Patient was seen and examined at bedside. Patient was lying in bed, on room air, NAD, resting comfortably. Patient denies any chest pain or palpitation, reports eating okay and moving bowels okay. Patient's parents were at bedside were also updated on plan of care. Physical Exam Physical Exam: GENERAL: Alert and oriented x3. NAD, on RA. HEENT: No pallor, no icterus. Pupils equal, round and reactive to light. Oral mucosa moist. Scalp contusion noted. NECK: No JVD, no neck masses. HEART: S1 and S2 heard. Regular rate and rhythm. No murmur, no gallop. RESPIRATORY SYSTEM: Normal AP diameter. No accessory muscle use. No wheezing, no crackles. ABDOMEN: Soft, bowel sounds present, nontender, no distention. CENTRAL NERVOUS SYSTEM: No facial droop. Speech is clear. Obeys simple commands. Moves extremities. EXTREMITIES: No edema, no erythema seen. Results & Data Results & Data Vital Signs (Past 12 Hours) Vital Signs Temp Pulse Resp BP BP Pulse Ox O2 Del Method 01/14/24 13:03 93 H 25 H 01/14/24 13:00 36.7 C 150/88 H 01/14/24 12:00 99 H 31 H 01/14/24 11:00 93 H 25 H 01/14/24 10:00 98 H 19 01/14/24 09:00 100 H 23 01/14/24 08:00 105 H 23 01/14/24 08:00 36.7 C 01/14/24 07:32 141/89 H 01/14/24 07:32 90 12 99 Room Air 01/14/24 07:12 85 21 01/14/24 05:01 36.7 C 79 16 144/84 H 99 Room Air 01/14/24 04:16 144/84 H Room Air 01/14/24 04:16 80 17 01/14/24 04:00 87 14
[2024-01-15 07:29] LABS: Hematocrit (blood only) 35.6 % (42.0-52.0); Mean Corpuscular Hemoglobin 31.8 pg (25.0-34.0); Mean Corpuscular Hgb Conc 33.7 g/dL (32.0-36.0); Mean Corpuscular Volume 94.4 fL (80.0-100.0); Mean Platelet Volume 10.6 fL (9.4-12.4); Platelet Count 196 K/uL (130-400); RDW Coefficient of Variation 13.2 % (11.5-14.5); RDW Standard Deviation 45.2 fL (36.4-46.3); Red Blood Count 3.77 M/uL (4.70-6.10); White Blood Count 5.91 K/ul (4.8-10.8)
[2024-01-15 08:12] LABS: Alanine Aminotransferase 107 U/L (7-52); Albumin Globulin Ratio 1.4 (0.9-2); Albumin Level 3.6 gm/dl (3.4-5.0); Alkaline Phosphatase 70 U/L (34-104); Anion Gap 5 (3-11); Aspartate Aminotransferase 129 U/L (13-39); BUN Creatinine Ratio 22.6 (10-20); Bilirubin,Total 0.5 mg/dl (0.2-1.0); Blood Urea Nitrogen 14 mg/dl (6-23); Carbon Dioxide 30 mmol/L (21-32); Chloride 105 mmol/L (98-107); Creatine Kinase 2840 U/L (30-223); Creatinine Clr Calc Pharmacy 190.6 ml/min; Est GFR (African American) > 150.0 ml/min; Globulin 2.6 gm/dl (2.5-4.0); Glucose 78 mg/dl (70-99(Fasting)); Magnesium 1.7 mg/dl (1.7-2.4); Phosphorus 4.1 mg/dl (2.5-4.9); Sodium 140 mmol/L (136-145); Total Protein 6.2 gm/dl (6.0-8.3)
--- NOTE | 2024-01-15 11:58 | XRay Report ---
XR hip LT 2V w pelvis CLINICAL HISTORY: Left hip pain following fall. COMPARISON: None FINDINGS: Sacroiliac joints and symphysis pubis are intact. There is no acute fracture within the pe lvis or hips. Hip joint spaces are preserved. There are no osseous lesions. There is no evidence for avascular necrosis within the femoral heads. IMPRESSION: No fractures within the pelvis or hips. ACT 112: Negative or not required by law. Electronically signed by: Latrell Weeks M.D. 01/15/2024 11:57 AM
--- NOTE | 2024-01-15 14:10 | Discharge Summary ---
Date of Service January 15, 2024 Admission HPI Per Admitting Provider History obtained from ED provider, family, and records. Unable to obtain history from patient secondary to obtunded state. Medical history significant for ADHD, anxiety/mood disorder, alcohol abuse, substance abuse. Patient has been under stress for some time now. Anxiety and mood not in control as per mother. Patient having difficulty getting set up with local mental health professional to get started on right medications as per family. Patient met with [facility] psychologist for psychiatry intake assessment via telemedicine 2 weeks ago. Patient talking about struggles with anxiety and manic episodes. Stress from fianc break-up. Patient mother not sure if patient needed to scheduled appointment with [facility] psychiatrist this week. Patient found sleeping at [facility] center with unidentified bottle of pills (gabapen tin and possibly doxepin as per report). Head contusion noted. Patient noted to be with slurred speech. No response to Narcan. Patient unable to respond to queries regarding chest pain, SOB, syncope, details of head trauma, abdominal pain. IV Acetadote protocol initiated at the ER following Toxicology recommendations given abnormal LFTs. Medical History as above Surgical History : Dental surgery Family History : Unknown due to patient adoption Personal/Social history : Non-smoker, alcohol abuse as per patient family, currently unemployed Admission Exam Per Admitting Provider GENERAL: Obtunded, no respiratory distress SKIN: Pallor, warm HEENT: Scalp contusion, pale palpebral conjunctivae, no ptosis, dry buccal mucosa NECK : Supple, no tenderness CHEST : Decreased breath sounds, no tenderness HEART : Tachycardic, no obvious murmurs ABDOMEN: no distention, nontender EXTREMITIES : No LE swelling/tenderness, no other conspicuous deformities noted NEUROLOGIC : Obtunded , no facial asymmetry, gait and stance not assessed Principal Diagnosis Toxic encephalopathy Overdose on recreational drugs Rhabdomyolysis and transaminitis New onset anemia Scalp contusion Discharge Exam GENERAL: Alert and oriented x3. NAD, on RA. HEENT: No pallor, no icterus. Pupils equal, round and reactive to light. Oral mucosa moist. Scalp contusion noted - stable/no erythema or tenderness or open wound noted. NECK: No JVD, no neck masses. HEART: S1 and S2 heard. Regular rate and rhythm. No murmur, no gallop. RESPIRATORY SYSTEM: Normal AP diameter. No accessory muscle use. No wheezing, no crackles. ABDOMEN: Soft, bowel sounds present, nontender, no distention. CENTRAL NERVOUS SYSTEM: No facial droop. Speech is clear. Obeys simple commands. Moves extremities. EXTREMITIES: No edema, no erythema seen. Discharge Data Allergies Allergy/AdvReac Type Severity Reaction Status Date / Time No Known Allergies Allergy Unverified 01/01/24 12:27 Consultations 01/13/24 00:57 ED Decision to Admit Stat 01/13/24 07:04 Consult Behavioral Health Liaison Routine Ordered Studies 01/12/24 20:32 CT head/brain wo con Stat 01/13/24 09:00 CT head/brain wo con Urgent Hospital Course (1) Acute drug overdose: Plan 28-year-old male with PMH of ADHD, anxiety/mood disorder, alcohol abuse, substance abuse was found sleeping at campus with an identified bottles of pills. Head contusion was noted at presentation. Patient noted to have slurred speech and no response to Narcan at ED. At my bedside examination on the late morning of arrival, patient was more awake and oriented, reported taking several puffs of marijuana/1 L of wine/couple of tablets of Xanax. Denies taking other recreational drugs and other medical drugs. He was managed for the following: Toxic encephalopathy Overdose on recreational drugs Patient brought in due to being found asleep at campus. No response to Narcan at ED. Patient reported (on 01/12) taking Xanax/1 L of wine/several puffs of marijuana for recreational purposes/to get high, denied SI/HI ON 01/13 - He reports not being able to recall exactly what he took, but he is sure he was taking lot of marijuana and he might have taken 6 tabs of doxepin (strength unknown) thinking it was gabapentin. Labs fairly WNL at presentation except for LFT elevation and CPK elevation Admitting and repeat CT head with soft tissue swelling, no intracranial abnormality. EKG with QTc of 475, sinus tachycardia at presentation. Psych liaison evaluated, appreciate input. repeat EKG with improvement in qtc Mentation resolved back to baseline. Patient declined rehab options offered by case folder, he stated that he would like to go to rehab after he is discharged home and he stated that his parents privately pays for the rehab. Patient is hemodynamically stable and would like to go home. Patient denies SI/HI. Rhabdomyolysis and transaminitis: CPK 8586 and LFT elevated at presentation. Status post IV fluid, LFT and CPK both trending down. Patient to follow-up with LFT and CPK in a week time upon discharge with his PCP office. New onset anemia: Hemoglobin of 14.7 in December 2023, presenting hemoglobin 12.5, possible blood loss secondary to head trauma with note of contusion. Monitor H&H. Iron profile wnl. B12 low normal, folate level low normal. Continue B12 and folate supplement /, repeat irons studies in 3 months. Alcohol abuse: JOANA S at risk protocol, DT precautions scalp contusion: CT head reviewed. continue to monitor. appears stable, non infected. pain under control Other chronic medical conditions: Continue with/resume home meds as and when able History substance abuse Suboptimal anxiety/mood disorder symptoms - psych liadavid montez, pt to f/u w/ his OP psychiatry. History ADHD DVT prophylaxis. SCDs Re: Traumatic head injury Full code Patient mother Ms. Heydi Everett, contact #[phone]. Pt ok with updating his parents with no restrictions as per today's discussion. Patient's mother was given a phone call to update patient's current status, possible discharge, and patient's plan to go to rehab as an outpatient. She voiced understanding. Answered all her questions. Patient is being discharged with following instruction at the point of discharge: Follow-up with your primary care physician within a week time and likely you will need labs CBC/CMP/magnesium/phosphorus. You were evaluated for recreational drug overdose, you were noted to have elevated liver enzymes and increased muscle injury and new onset anemia and scalp contusion. You need repeat CPK level and liver enzymes level And EKG done in a week time, coordinate with your PCP office to set up the test. For your scalp contusion, keep the area clean, watch out for signs and symptoms of infection as discussed at the bedside. If the area is enlarging/getting red/getting more painful/oozing pus and if you have fever communicate with your PCP office or emergency immediately. Have your self evaluated at the PCP office during your next visit. As discussed at the bedside, follow-up with drug rehab upon discharge. Since you have declined rehab options given by corrections caseworker, strongly advise to establish with outpatient drug rehab of your choice upon discharge. Take your medications as prescribed. Please make sure that you are able to get your medications today by calling your pharmacy before you leave the hospital so that your treatment continuity is not broken. Text document was generated using [employer] voice recognition software. It may contain grammatical or spelling errors. Kindly contact undersigned for clarification of any documentation item in quest ion. Home Health Attestation I certify that this patient is under my care and that I, or a physicians web press operator assistant working with me, had a face to-face encounter that meets the home health [id number] encounter requirements with this patient. The encounter with the patient was in whole, or in part, for the following medical condition, which is the primary reason for home health care (list medical condition): I certify that, based on my findings, the following services are medically necessary home health services: My clinical findings support the need for the above services because: Further, I certify that my clinical findings support that this patient is home bound (i.e. absences from home require considerable and taxing effort and are for medical reasons or [facility] services or infrequently or of short duration when for other reasons) because: Certification for Home Health Services: Based on the above findings, I certify that this patient is confined to the home and needs intermittent senior living care, physical therapy and/or speech therapy or continues to need occupational therapy. The patient is under my care, and I have initiated the establishment of the plan of care. This patient will be followed by a physician who will periodically review the plan of care. Total Time Total Time Spent Total Time Spent (In Minutes): 45 Discharge Plan Discharge Items Patient Disposition: Home - Self-Care Reason For Visit: DRUG OD Discharge Diagnosis: Toxic encephalopathy Overdose on recreational drugs Rhabdomyolysis and transaminitis New onset anemia Scalp contusion Activity: Resume your previous activity Non-emergency contact: Primary Care Provider Call non-emergency contact if: you have any medication questions, your symptoms worsen and your temperature is above 101 Follow-up/Referrals: Bobby Hendricks DO [Outside Practitioners] - (Date & Time 01/22/2024 11:00 AM Provider Bobby Hendricks DO Department [facility] ) Diet: Regular Addtl Attending Provider Instructions: Follow-up with your primary care physician within a week time and likely you will need labs CBC/CMP/magnesium/phosphorus. You were evaluated for recreational drug overdose, you were noted to have elevated liver enzymes and increased muscle injury and new onset anemia and scalp contusion. You need repeat CPK level and liver enzymes level And EKG done in a week time, coordinate with your PCP office to set up the test. For your scalp contusion, keep the area clean, watch out for signs and symptoms of infection as discussed at the bedside. If the area is enlarging/getting red/getting more painful/oozing pus and if you have fever communicate with your PCP office or emergency immediately. Have your self evaluated at the PCP office during your next visit. As discussed at the bedside, follow-up with drug rehab upon discharge. Since you have declined rehab options given by corrections caseworker, strongly advise to establish with outpatient drug rehab of your choice upon discharge. Take your medications as prescribed. Please make sure that you are able to get your medications today by calling your pharmacy before you leave the hospital so that your treatment continuity is not broken. Pending Studies at Discharge: Yes Stand-Alone Forms: [email or web address], Smoking Cessation Medications and DC Order Prescriptions: New cyanocobalamin (vitamin B-12) 500 mcg Tablet 500 mcg PO QAM Qty: 30 0RF folic acid 1 mg Tablet 1 mg PO QAM Qty: 30 0RF multivitamin with folic acid [Daily-Aziza (with folic acid)] 400 mcg Tablet 1 tab PO QAM Qty: 30 0RF thiamine HCl (vitamin B1) 100 mg Tablet 100 mg PO QAM Qty: 30 0RF No Action No Known Home Medications Discharge Orders: Discharge Order (Routine); Ordered 01/15/24 Ordered By: Marshal Hill Admission Data Admit Date/Time: 01/13/24 02:27 Attending Provider: Marshal Hill Admit Provider: Carlos Vieira Primary Care Provider: PCP,NO Other Providers: Bobby Hendricks; Carlos Vieira
--- NOTE | 2024-01-16 04:12 | Electrocardiogram Report ---
Test Reason : Blood Pressure : / mmHG Vent. Rate : 085 BPM Atrial Rate : 085 BPM P-R Int : 142 ms QRS Dur : 086 ms QT Int : 368 ms P-R-T Axes : 060 062 045 degrees QTc Int : 437 ms Normal sinus rhythm Possible Left atrial enlargement Borderline ECG When compared with ECG of 12-JAN-2024 20:28, No significant change was found Confirmed by Micky Blackburn ([id number]) on 01/16/2024 4:12:07 AM Referred By: REFERRED SELF Confirmed By:Micky Blackburn
[2024-01-16 10:09] LABS: Marijuana Quant, GCMS Urine 167 ng/mL (<5)
== END 2024-01-15 15:02 | disposition home or self-care (01) | DRG 917 ==
LOC: ED 20:13 → 1E 01-13 02:27 → 2S 01-14 22:58